=== PATIENT | male | born 1985 | race Caucasian/White ===

== ENCOUNTER 2021-12-06 00:13 | Emergency (ER) | payer OTHER ==
[~2021-12-06 00:13] MED LIST: IBUPROFEN800 MG PO
[2021-12-06 00:45] LABS: BASOPHIL 0.6 % (0-2); EOSINOPHIL 4.1 % (0-5); HCT 45.4 % (42.0-52.0); HGB 15.4 g/dl (13.2-18.0); LYMPHOCYTE 41.6 % (15-48); MCH 28.9 pg (25.0-31.0); MCHC 33.9 g/dL (32.0-36.0); MCV 85.2 fL (78.0-100.0); MONOCYTE 8.2 % (0-12); MPV 9.9 fL (6.0-9.5); NEUTROPHIL 45.2 % (41-80); NRBC 0; PLT 324 K/uL (150-400); RBC 5.33 M/uL (4.70-6.00); RDW 12.4 % (11.5-14.0); WBC 8.8 K/uL (4.0-10.5)
[2021-12-06 00:55] LABS: INR 1.05 (0.9-1.2); PROTHROMBIN TIME 13.4 SECONDS (11.9-13.9); PTT 27.5 SECONDS (24.9-34.6)
[2021-12-06 00:58] LABS: BILIRUBIN - TOTAL 1.1 mg/dL (0.2-1.0); CREATININE 0.95 mg/dL (0.67-1.17); POTASSIUM 3.8 mmol/L (3.5-5.1)
[2021-12-06 01:59] LABS: CORONAVIRUS 2019 SARS-COV-2 NEGATIVE (NEGATIVE); INFLUENZA A NAA NEGATIVE (NEGATIVE)
== END 2021-12-06 04:04 | disposition home or self-care (01) ==
LOC: FER 00:13
PROVIDERS: Internal Medicine
DX: R10.11 Right upper quadrant pain (principal); Z20.822 Contact with and (suspected) exposure to COVID-19
CPT/HCPCS: 36415; 71045; 80053; 83690; 84484; 85025; 85379; 85610; 85730; 93005; J1170; J2405; U0002